=== PATIENT | female | born 1960 | race Caucasian/White ===

== ENCOUNTER 2020-12-09 21:35 | Inpatient (IN) | payer OTHER ==
[~2020-12-09] VITALS: Ht 162.6 cm; Wt 34.2 kg
[2020-12-09 23:31] LABS: HEMOGLOBIN 10.9 gm/dl (12.3-15.3); RED BLOOD COUNT 3.61 M/UL (4.00-5.10); WHITE BLOOD COUNT 5.4 K/UL (4.5-11.0)
[2020-12-10 00:05] LABS: BUN/CREATININE RATIO 35 (0-10)
[2020-12-10] MEDS ORDERED: AMLODIPINE BES2.5 MG PO (05:44)
[2020-12-10] MEDS ORDERED: ASPIRIN81 MG PO (05:45)
[2020-12-10] MEDS ORDERED: CYCLOBENZAPRINE5 MG PO (05:45)
[2020-12-10] MEDS ORDERED: MONTELUKAST SOD10 MG PO (05:46)
[2020-12-10] MEDS ORDERED: DALIRESP 500500 MCG GT (05:46)
[2020-12-10] MEDS ORDERED: GABAPENTIN800 MG PO (05:47)
[2020-12-10] MEDS ORDERED: HYDROCODON-ACE1 EAC2 PO (05:48)
[2020-12-10] MEDS ORDERED: HYDROXYZINE PAM25 MG PO (05:49)
[2020-12-10] MEDS ORDERED: MELATONIN5 M2 PO (05:49)
[2020-12-10 11:14] LABS: HEMOGLOBIN 10.3 gm/dl (12.3-15.3); RED BLOOD COUNT 3.4 M/UL (4.00-5.10)
[2020-12-10 11:20] LABS: WHITE BLOOD COUNT 3.6 K/UL (4.5-11.0)
[2020-12-10 11:47] LABS: BUN/CREATININE RATIO 28 (0-10)
[2020-12-11 02:38] LABS: HEMOGLOBIN 10.6 gm/dl (12.3-15.3); RED BLOOD COUNT 3.51 M/UL (4.00-5.10); WHITE BLOOD COUNT 3.6 K/UL (4.5-11.0)
[2020-12-11 03:42] LABS: BUN/CREATININE RATIO 31 (0-10)
--- NOTE | 2020-12-11 14:11 | NUR ---
NO CHANGE FROM PREVIOUS ASSESSMENT
[2020-12-12] MEDS ORDERED: MEDROL DOSEPAK 24 MG PO (08:53)
[2020-12-12] MEDS ORDERED: AMLODIPINE BESYL5 MG PO (08:53)
[2020-12-12] MEDS ORDERED: SPIRIVA RESPIMAT4 GM INH (08:53)
[2020-12-12] MEDS ORDERED: IPRAT-ALBUT 0.5-3 ML NEB (08:53)
[2020-12-12] MEDS ORDERED: DULERA 200 MCG8.8 GM INH (08:56)
--- NOTE | 2020-12-12 16:29 | NUR ---
PT BEING DISCHARGED, AWAITING HOME O2 TANK FROM [facility]
== END 2020-12-12 16:57 | disposition home health service (06) | DRG 189 ==
LOC: ER1 21:35 → CDU 12-10 01:16 → PROG CARE 12-10 01:16
PROVIDERS: Family Medicine; Internal Medicine; ADMIT Internal Medicine Infectious Disease
PROC: 5A09457 Assistance with Respiratory Ventilation, 24-96 Consecutive Hours, Continuous Positive Airway Pressure (ICD-10-PCS; principal; 2020-12-10)
DX: J96.22 Acute and chronic respiratory failure with hypercapnia (principal); J44.1 Chronic obstructive pulmonary disease with (acute) exacerbation; E44.1 Mild protein-calorie malnutrition; E87.2 Acidosis; Z51.5 Encounter for palliative care; Z20.822 Contact with and (suspected) exposure to COVID-19; R64 Cachexia; Z68.1 Body mass index [BMI] 19.9 or less, adult; I11.0 Hypertensive heart disease with heart failure; I50.9 Heart failure, unspecified; J96.21 Acute and chronic respiratory failure with hypoxia; F41.9 Anxiety disorder, unspecified; D72.819 Decreased white blood cell count, unspecified; D64.9 Anemia, unspecified; E11.9 Type 2 diabetes mellitus without complications; Z79.82 Long term (current) use of aspirin; Z87.891 Personal history of nicotine dependence
CPT/HCPCS: 36415; 36600; 71045; 80053; 82550; 82553; 82607; 82746; 82803; 83605; 84484; 85025; 93005; 94640; 94660; 94664; 94760; 99285; J2920